=== PATIENT | female | born 2005 | race Caucasian/White ===

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

== ENCOUNTER 2024-01-31 00:19 | Emergency (ER) | payer OTHER ==
[2024-01-31 00:29] VITALS: BP 111/73; PULSE 92; RESP 20; TEMP 98.6; BMI 26.2
[2024-01-31 01:28] LABS: URINE APPEARANCE CLEAR; URINE BILIRUBIN NEGATIVE (NEGATIVE); URINE COLOR YELLOW; URINE GLUCOSE (UA) NEGATIVE (NEGATIVE); URINE KETONE NEGATIVE (NEGATIVE); URINE LEUK ESTERASE NEGATIVE (NEGATIVE); URINE NITRITE NEGATIVE (NEGATIVE); URINE PROTEIN NEGATIVE (NEGATIVE); URINE UROBILINOGEN 0.2 mg/dL (0.2-1.0)
[2024-01-31 01:30] LABS: HCG,QUALITATIVE URINE Negative
== END 2024-01-31 02:38 | disposition home or self-care (01) ==
LOC: JER 00:19
DX: L02.224 Furuncle of groin (principal); N73.2 Unspecified parametritis and pelvic cellulitis; L08.9 Local infection of the skin and subcutaneous tissue, unspecified
CPT/HCPCS: 81003; 84703; 87086; 99283-25